=== PATIENT | male | born 1985 | race Caucasian/White ===

== ENCOUNTER 2017-09-02 10:41 | Emergency (ER) | payer SELFPAY ==
[2017-09-02 10:48] VITALS: BP 136/76; PULSE 88; TEMP 99; BMI 33.8
[2017-09-02] MEDS ORDERED: hydrOXYzine PAMOATE 25 MG CAPSULE (FP) PO ONE ×2 (11:15→11:19)
--- NOTE | 2017-09-02 11:49 | PDOC ---
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 He was not driving. He began to feel extremely anxious, his limbs were shaking, and he began breathing rapidly. This has happened to him before. He is been under considerable stress lately due to a divorce, job uncertainty, and lack of money. He has been smoking excessively, but denies over use of alcohol or use of nonprescription drugs. Past medical history: Anxiety. Otherwise no significant medical or surgical problems past or present. 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 Lives alone, most of his family is still in [place], and he is planning to visit them, leaving Thursday this week. He plans to stay in [place] for several months, and will look into completing his college education there. She wants to stop smoking and exercising again. He realizes that his anxiety is caused by his social situation. He has never had psychiatric evaluation, hospitalization, or regular counseling. He vehemently denies ever having homicidal or suicidal ideations or wanting to harm himself or others Family history: His father suffers from severe anxiety. Otherwise negative Physical exam: Alert and oriented, well-developed well-nourished, no acute distress, but moderately anxious. Afebrile, vital signs normal PERRLA, fundi benign, ENT clear Neck supple without bruit mass or nodes Chest clear CV regular without murmur rub or gallop Abdomen benign Neurological C2 to 12 intact. No focal sensory or motor deficits. Strength full and symmetric. Gait stable and unimpaired Impression: Anxiety, not adequately addressed Plan: Requests calming medication for his plane flight, for which she is very nervous. Vistaril prescribed. Discussed smoking cessation, return to exercise, and stress reduction techniques. It was strongly recommended that he see a counselor or psychotherapist to review relaxation techniques and consider further therapy. He feels better with discussion of his problems, is fully ambulatory and in no acute distress upon discharge to follow-up as directed Past History - Past Medical History Allergies/Adverse Reactions: Allergies Allergy/AdvReac Type Severity Reaction Status Date / Time No Known Allergies Allergy Verified 09/02/17 10:44 Home Medications: Ambulatory Orders Hydroxyzine Pamoate [Vistaril -] 1 - 2 cap PO TID PRN #15 capsule 09/02/17 Psychiatric Problems: Yes - Suicide/Smoking/Psychosocial Hx Smoking History: Current every day smoker Number of Cigarettes Smoked Daily: 12 Information on smoking cessation initiated: Yes 'Breaking Loose' booklet given: 09/02/17 Hx Alcohol Use: Yes Drug/Substance Use Hx: No Substance Use Type: Alcohol *Physical Exam - Vital Signs Last Vital Signs Temp Pulse Resp BP Pulse Ox 99.0 F 88 18 136/76 100 09/02/17 10:43 09/02/17 10:43 09/02/17 10:43 09/02/17 10:43 09/02/17 10:43 *DC/Admit/Observation/Transfer Diagnosis at time of Disposition: Anxiety - Discharge Dispostion Disposition: HOME Condition at time of disposition: Improved Admit: No - Prescriptions Prescriptions: Hydroxyzine Pamoate [Vistaril -] 1 - 2 cap PO TID PRN #15 capsule PRN Reason: Anxiety - Referrals Referrals: Saskia Umana MD [Staff Physician] - 1 week - Patient Instructions Printed Discharge Instructions: DI for Anxiety -- Adult - Post Discharge Activity Forms/Work/School Notes: Back to Work
== END 2017-09-02 11:56 | disposition home or self-care (01) ==
LOC: FER 10:41
DX: F41.9 Anxiety disorder, unspecified (principal); F17.210 Nicotine dependence, cigarettes, uncomplicated; F99 Mental disorder, not otherwise specified
CPT/HCPCS: 99281-25